=== PATIENT | female | born 1985 | race Caucasian/White ===

== ENCOUNTER 2016-05-04 22:06 | Emergency (ER) | payer MEDICAID ==
[~2016-05-04] VITALS: Ht 154.9 cm; Wt 115.7 kg
[~2016-05-04 22:06] MED LIST: CITA10TA59; IBUP800T24 PO; NITR-48 PO; TRAZ100T2; [UNRECOGNIZED DRUG - CODE]; [UNRECOGNIZED DRUG - CODE] PO
[2016-05-04 22:10] VITALS: BP 129/81
[2016-05-04] MEDS ORDERED: IBUPROFEN 600 MG TAB PO ONE (22:45)
[2016-05-04] MEDS ORDERED: HYDROcodone-ACET 10/325MG TAB PO ONE (23:15)
== END 2016-05-04 22:49 | disposition home or self-care (01) ==
LOC: ER 22:09
DX: H60.91 Unspecified otitis externa, right ear (principal); K08.89 Other specified disorders of teeth and supporting structures; Z88.6 Allergy status to analgesic agent; Z79.899 Other long term (current) drug therapy

== ENCOUNTER 2017-03-25 01:26 | Emergency (ER) | payer SELFPAY ==
[~2017-03-25] VITALS: Ht 157.5 cm; Wt 79.4 kg
[2017-03-25 02:23] LABS: Urine Bilirubin Negative (Negative); Urine Blood Negative /uL (Negative); Urine Color Yellow (Yellow); Urine Glucose Normal (Normal); Urine Hyaline Cast MOD /lpf (0 - 2); Urine Ketone Negative (Negative); Urine Mucus FEW (None Seen); Urine Nitrite POSITIVE (Negative); Urine RBC 2 /hpf (0 - 4); Urine Squamous Epithelial Cell MOD /hpf (<5); Urine Urobilinogen Normal (Negative); Urine pH 5.5 (5.0-8.0)
[2017-03-25 02:24] LABS: Basophils # (auto) 0 uL; Basophils % (auto) 0.4 % (0.0-2.0); Eosinophils # (auto) 0 uL; Eosinophils % (auto) 0.4 % (0.0-7.0); Hemoglobin 14.2 g/dL (12.2-16.2); Lymphocytes # (auto) 2.2 uL; Lymphocytes % (auto) 17.8 % (10.0-50.0); Mean Corpuscular Hemoglobin 30.5 pg (28.0-32.0); Mean Corpuscular Volume 92.5 fL (80.0-100.0); Mean Platelet Volume 8.5 fL (6.9-10.8); Monocytes # (auto) 0.6 uL; Monocytes % (auto) 5.2 % (0.0-12.0); Neutrophils # (auto) 9.4 uL; Neutrophils % (auto) 76.2 % (37.0-80.0); Nucleated Red Blood Cells % 0.1 %; Platelet Count (auto) 275 10^3/uL (140-450); Red Cell Distribution Width 13.2 % (11.8-14.3); White Blood Cell 12.3 10^3/uL (4.4-10.8)
[2017-03-25 02:43] LABS: Albumin 3.8 g/dL (3.4-5.0); Calcium 9.6 mg/dL (8.5-10.1); Potassium 4.1 mmol/L (3.5-5.1)
[2017-03-25 02:45] LABS: BUN/Creatinine Ratio 9.2
[2017-03-25 02:48] LABS: Bilirubin, Total 0.3 mg/dL (0.2-1.0); Total Protein 7.8 g/dL (6.4-8.2)
[2017-03-25 03:54] VITALS: BP 108/64
== END 2017-03-25 06:28 | disposition left against medical advice (07) ==
LOC: ER 01:28
DX: R10.13 Epigastric pain (principal); R11.0 Nausea; Z53.21 Procedure and treatment not carried out due to patient leaving prior to being seen by health care provider
CPT/HCPCS: 36415; 74176; 80053; 81001; 82150; 83690; 84702; 85025

== ENCOUNTER 2019-06-19 00:28 | Emergency (ER) | payer MEDICAID ==
[~2019-06-19] VITALS: Ht 157.5 cm; Wt 88.5 kg
[2019-06-19 00:28] VITALS: BP 128/77
[~2019-06-19 00:28] MED LIST changes: -NITR-48 PO; +NITR100C44 PO; -TRAZ100T2; +TRAZ100T3
== END 2019-06-19 03:18 | disposition left against medical advice (07) ==
LOC: ER 00:29
DX: R07.9 Chest pain, unspecified (principal); Z53.21 Procedure and treatment not carried out due to patient leaving prior to being seen by health care provider
CPT/HCPCS: 71045; 93005

== ENCOUNTER 2019-06-22 00:25 | Emergency (ER) | payer MEDICAID ==
[~2019-06-22] VITALS: Ht 154.9 cm; Wt 88.5 kg
[2019-06-22 01:46] VITALS: BP 116/72
== END 2019-06-22 01:55 | disposition home or self-care (01) ==
LOC: ER 00:25
DX: J20.9 Acute bronchitis, unspecified (principal)

== ENCOUNTER 2019-07-08 03:52 | Emergency (ER) | payer MEDICAID ==
[~2019-07-08] VITALS: Ht 154.9 cm; Wt 88.5 kg
[2019-07-08 04:07] VITALS: BP 136/76
== END 2019-07-08 05:03 | disposition home or self-care (01) ==
LOC: ER 03:53
DX: F41.9 Anxiety disorder, unspecified (principal)

== ENCOUNTER 2019-08-27 01:01 | Emergency (ER) | payer MEDICAID ==
[~2019-08-27] VITALS: Ht 154.9 cm; Wt 81.6 kg
[2019-08-27 01:32] LABS: Basophils # (auto) 0.1 10 ^3/uL (0-0.2); Basophils % (auto) 0.6 % (0.0-2.0); Eosinophils # (auto) 0.2 10 ^3/uL (0-0.8); Eosinophils % (auto) 1.6 % (0.0-7.0); Hematocrit 44.4 % (36.0-46.0); Hemoglobin 14.7 g/dL (12.2-16.2); Lymphocytes # (auto) 3.3 10 ^3/uL (0.4-5.4); Lymphocytes % (auto) 29.4 % (10.0-50.0); Mean Corpuscular Hemoglobin 30.4 pg (28.0-32.0); Mean Corpuscular Volume 92.2 fL (80.0-100.0); Monocytes # (auto) 0.7 10 ^3/uL (0-1.3); Monocytes % (auto) 5.9 % (0.0-12.0); Neutrophils # (auto) 7.1 10 ^3/uL (1.6-8.6); Neutrophils % (auto) 62.5 % (37.0-80.0); Nucleated Red Blood Cells % 0.1 %; Platelet Count (auto) 286 10^3/uL (140-450); Red Blood Cells 4.82 10^6/uL (4.0-5.20); Red Cell Distribution Width 13.6 % (11.8-14.3); White Blood Cell 11.3 10^3/uL (4.4-10.8)
[2019-08-27 01:47] LABS: INR 0.96 (0.9-1.15)
[2019-08-27 01:52] LABS: Alanine Aminotransferase 56 U/L (13-56); Albumin 3.7 g/dL (3.4-5.0); Anion Gap 4 (5-15); Aspartate Aminotransferase 39 U/L (15-37); Blood Urea Nitrogen 10 mg/dL (7-18); Calcium 9.3 mg/dL (8.5-10.1); Carbon Dioxide 27 mmol/L (21-32); Chloride 109 mmol/L (98-107); GFR African American 112 mL/min; GFR Non-African American 92 mL/min; Glucose 106 mg/dL (74-106); Potassium 4.2 mmol/L (3.5-5.1); Sodium 140 mmol/L (136-145)
[2019-08-27 01:56] LABS: Alkaline Phosphatase 100 U/L (45-117); Bilirubin, Total 0.4 mg/dL (0.2-1.0)
[2019-08-27] MEDS ORDERED: MORPHINE SULFATE 4 MG/ML SYR/VIAL IV ONE (03:45)
[2019-08-27] MEDS ORDERED: ONDANSETRON HCL 4 MG/2 ML VIAL IV ONE (03:45)
[2019-08-27] MEDS ORDERED: FAMOTIDINE (10MG/ML) 2ML VL IV ONE (03:45)
[2019-08-27] MEDS ORDERED: LORazepam 2MG/ML-1ML VIAL IV ONE (04:15)
[2019-08-27 05:06] VITALS: BP 108/73
== END 2019-08-27 05:05 | disposition home or self-care (01) ==
LOC: ER 01:02
DX: R07.89 Other chest pain (principal); F41.9 Anxiety disorder, unspecified
CPT/HCPCS: 36415; 71045; 80053; 84484; 85025; 85610; 85730; 93005; 96374; 96375; 99285; J2060; J2270; J2405; J3490

== ENCOUNTER 2020-05-19 13:17 | Emergency (ER) | payer MEDICAID ==
[~2020-05-19] VITALS: Ht 160 cm; Wt 115.7 kg
[~2020-05-19 13:17] MED LIST changes: -CITA10TA59; +CITA10TA8; -IBUP800T24 PO; +IBUP800T27 PO; +NITR-87 PO; -NITR100C44 PO
[2020-05-19 14:27] LABS: Basophils # (auto) 0 10 ^3/uL (0-0.2); Basophils % (auto) 0.5 % (0.0-2.0); Eosinophils # (auto) 0.1 10 ^3/uL (0-0.8); Eosinophils % (auto) 1.1 % (0.0-7.0); Hematocrit 40.6 % (36.0-46.0); Hemoglobin 13.7 g/dL (12.2-16.2); Lymphocytes # (auto) 1.6 10 ^3/uL (0.4-5.4); Lymphocytes % (auto) 18.3 % (10.0-50.0); Mean Corpuscular Hemoglobin 31.4 pg (28.0-32.0); Mean Corpuscular Hgb Conc. 33.8 g/dL (32.0-36.0); Mean Corpuscular Volume 92.9 fL (80.0-100.0); Monocytes # (auto) 0.4 10 ^3/uL (0-1.3); Monocytes % (auto) 4.5 % (0.0-12.0); Neutrophils # (auto) 6.8 10 ^3/uL (1.6-8.6); Neutrophils % (auto) 75.6 % (37.0-80.0); Nucleated Red Blood Cells % 0.2 %; Platelet Count (auto) 260 10^3/uL (140-450); Red Blood Cells 4.37 10^6/uL (4.0-5.20); Red Cell Distribution Width 13.2 % (11.8-14.3)
[2020-05-19 14:42] LABS: Albumin 3.3 g/dL (3.4-5.0); Calcium 8.3 mg/dL (8.5-10.1); Potassium 3.6 mmol/L (3.5-5.1)
[2020-05-19 14:43] LABS: Acetaminophen < 2.0 ug/mL (10-30); Salicylate 4.4 mg/dL (2.8-20.0)
[2020-05-19 14:45] LABS: BUN/Creatinine Ratio 9.7; Bilirubin, Total 0.2 mg/dL (0.2-1.0); Total Protein 7.4 g/dL (6.4-8.2)
[2020-05-19] MEDS ORDERED: SODIUM CHLORIDE 0.9% 1,000 ML IV ONE (16:00)
[2020-05-19 16:10] LABS: Urine Bacteria FEW /hpf (None Seen); Urine Blood Negative /uL (Negative); Urine Mucus FEW (None Seen); Urine Specific Gravity 1.004 (1.001-1.035); Urine WBC 1 /hpf (0 - 5)
[2020-05-19 16:21] LABS: Amphetamine Screen, Urine NEGATIVE (NEGATIVE); Barbiturate Scree,Urine NEGATIVE (NEGATIVE); Benzodiazephine Screen, Urine NEGATIVE (NEGATIVE); Cannabinoid Screen, Urine POSITIVE (NEGATIVE); Cocaine Screen, Urine NEGATIVE (NEGATIVE); Opiate Scree,Urine NEGATIVE (NEGATIVE); Phencyclidine Screen, Urine NEGATIVE (NEGATIVE)
[2020-05-19 21:50] LABS: Acetaminophen < 2.0 ug/mL (10-30)
[2020-05-19 22:04] VITALS: BP 131/84
== END 2020-05-19 22:06 | disposition home or self-care (01) ==
LOC: ER 13:17 → EDBD 13:17 → ER 22:06
DX: T42.4X1A Poisoning by benzodiazepines, accidental (unintentional), initial encounter (principal); F32.9 Major depressive disorder, single episode, unspecified; F10.10 Alcohol abuse, uncomplicated; Z32.02 Encounter for pregnancy test, result negative; Y92.89 Other specified places as the place of occurrence of the external cause
CPT/HCPCS: 36415; 80053; 80307; 80320; 80329; 81001; 81025; 82962; 84702; 85025; 93005; 96360; 99285; J7030

== ENCOUNTER 2020-06-30 12:32 | Emergency (ER) | payer MEDICAID ==
[~2020-06-30] VITALS: Ht 157.5 cm; Wt 108.9 kg
[2020-06-30 12:33] VITALS: BP 152/96
== END 2020-06-30 13:18 | disposition home or self-care (01) ==
LOC: ER 12:32
DX: M67.431 Ganglion, right wrist (principal); M25.431 Effusion, right wrist; F41.9 Anxiety disorder, unspecified; F32.9 Major depressive disorder, single episode, unspecified; Z88.6 Allergy status to analgesic agent

== ENCOUNTER 2021-06-22 17:24 | Emergency (ER) | payer MEDICAID ==
[~2021-06-22] VITALS: Ht 162.6 cm; Wt 89.8 kg
[2021-06-22 17:57] VITALS: BP 123/73
[2021-06-22] MEDS ORDERED: HYDR50CA PO (18:03)
[2021-06-22] MEDS ORDERED: AMOX-277 PO (18:03)
== END 2021-06-22 18:20 | disposition home or self-care (01) ==
LOC: ER 17:24
DX: H66.93 Otitis media, unspecified, bilateral (principal); F41.9 Anxiety disorder, unspecified; F32.9 Major depressive disorder, single episode, unspecified; Z88.6 Allergy status to analgesic agent

== ENCOUNTER 2021-09-03 17:53 | Emergency (ER) | payer MEDICAID ==
[~2021-09-03] VITALS: Ht 162.6 cm; Wt 90.7 kg
[~2021-09-03 17:53] MED LIST changes: +AMOX-277 PO; +HYDR50CA PO
[2021-09-03 18:02] VITALS: BP 134/82
== END 2021-09-04 00:29 | disposition left against medical advice (07) ==
LOC: ER 17:53
DX: R10.9 Unspecified abdominal pain (principal); Z53.21 Procedure and treatment not carried out due to patient leaving prior to being seen by health care provider

== ENCOUNTER 2021-11-08 18:33 | Emergency (ER) | payer MEDICAID ==
[~2021-11-08] VITALS: Ht 162.6 cm; Wt 88.6 kg
[2021-11-08] MEDS ORDERED: CIPRSUS OT (21:37)
[2021-11-08 21:41] VITALS: BP 132/83
== END 2021-11-08 21:50 | disposition home or self-care (01) ==
LOC: ER 18:33
DX: H60.92 Unspecified otitis externa, left ear (principal); Z79.2 Long term (current) use of antibiotics; Z79.1 Long term (current) use of non-steroidal anti-inflammatories (NSAID); Z79.899 Other long term (current) drug therapy; Z88.5 Allergy status to narcotic agent; Z88.8 Allergy status to other drugs, medicaments and biological substances

== ENCOUNTER 2021-11-12 17:35 | Emergency (ER) | payer MEDICAID ==
[~2021-11-12] VITALS: Ht 160 cm; Wt 122.7 kg
[~2021-11-12 17:35] MED LIST changes: +CIPRSUS OT
[2021-11-12 17:57] VITALS: BP 142/84
== END 2021-11-12 20:00 | disposition left against medical advice (07) ==
LOC: ER 17:35
DX: H92.03 Otalgia, bilateral (principal); Z79.1 Long term (current) use of non-steroidal anti-inflammatories (NSAID); Z79.899 Other long term (current) drug therapy; Z79.2 Long term (current) use of antibiotics; Z88.5 Allergy status to narcotic agent; Z88.8 Allergy status to other drugs, medicaments and biological substances

== ENCOUNTER 2022-10-07 13:21 | Emergency (ER) | payer MEDICAID ==
[~2022-10-07] VITALS: Ht 162.6 cm; Wt 129.1 kg
[~2022-10-07 13:21] MED LIST changes: -AMOX-277 PO; +AMOX875T4 PO; +IBUP-1456 PO; -IBUP800T27 PO; +TRAZ-228; -TRAZ100T3
[2022-10-07 13:51] LABS: Basophils # (auto) 0 10 ^3/uL (0-0.2); Basophils % (auto) 0.3 % (0.0-2.0); Eosinophils # (auto) 0.3 10 ^3/uL (0-0.8); Eosinophils % (auto) 2.9 % (0.0-7.0); Hematocrit 43.4 % (36.0-46.0); Hemoglobin 14.4 g/dL (12.2-16.2); Lymphocytes % (auto) 33.9 % (10.0-50.0); Mean Corpuscular Hemoglobin 30.3 pg (28.0-32.0); Mean Corpuscular Hgb Conc. 33.2 g/dL (32.0-36.0); Mean Corpuscular Volume 91.2 fL (80.0-100.0); Monocytes # (auto) 0.8 10 ^3/uL (0-1.3); Monocytes % (auto) 6.6 % (0.0-12.0); Neutrophils # (auto) 6.7 10 ^3/uL (1.6-8.6); Neutrophils % (auto) 56.3 % (37.0-80.0); Nucleated Red Blood Cells % 0.3 %; Red Blood Cells 4.76 10^6/uL (4.0-5.20); Red Cell Distribution Width 13.1 % (11.8-14.3); White Blood Cell 11.8 10^3/uL (4.4-10.8)
[2022-10-07 14:07] LABS: INR 0.98 (0.9-1.15); Partial Thromboplastin Time 30.5 SEC (24.5-34.5)
[2022-10-07 14:29] LABS: Calcium 9.5 mg/dL (8.5-10.1); Magnesium 2.3 mg/dL (1.6-2.6); Potassium 4.4 mmol/L (3.5-5.1)
[2022-10-07 14:31] LABS: Urine Bacteria FEW /hpf (None Seen); Urine Blood Negative /uL (Negative); Urine Specific Gravity 1.009 (1.001-1.035); Urine WBC 1 /hpf (0 - 5)
[2022-10-07 14:33] LABS: BUN/Creatinine Ratio 11.6 (10.0-20.0); Bilirubin, Total 0.3 mg/dL (0.2-1.0); Total Protein 7.7 g/dL (6.4-8.2)
[2022-10-07] MEDS ORDERED: CEPH250C PO (16:23)
[2022-10-07 16:30] VITALS: BP 148/91
== END 2022-10-07 16:40 | disposition home or self-care (01) ==
LOC: ER 13:21
DX: R07.89 Other chest pain (principal); J20.9 Acute bronchitis, unspecified; F41.9 Anxiety disorder, unspecified; F32.9 Major depressive disorder, single episode, unspecified; I10 Essential (primary) hypertension; Z87.440 Personal history of urinary (tract) infections; Z98.890 Other specified postprocedural states; Z88.5 Allergy status to narcotic agent; Z88.8 Allergy status to other drugs, medicaments and biological substances
CPT/HCPCS: 36415; 71045; 80053; 81001; 83735; 83880; 84484; 85025; 85610; 85730; 93005